=== PATIENT | female | born 1965 | race African-American/Black ===

== ENCOUNTER → 2019-07-30 | Outpatient (CLI) | payer OTHER ==
[~2019-07-30] VITALS: Ht 170.2 cm; Wt 95.3 kg
[~2019-07-30] MED LIST: ALBUTEROL SULF8.5 GM IH; AZITHROMYCIN 2250 MG PO; FLEXERIL PO; MULTI VITAMIN1 EACH PO; NOHOMEMEDICATIONS; OMEPRAZOLE 20 M20 M1 PO; PERCOCET 5-3251 EACH PO; PREDNISONE50 MG PO; PROMETHAZINE-C120 ML PO
--- NOTE | 2019-08-02 13:07 | PATH ---
[facility] [place] [address] PATHOLOGY RPT PROCEDURE Name: JUAN CRAIN Room #: REG [facility].#: [id number] Admission: 07/30/19 Date of : 69 Discharge: Report #: [id number] Path Case #: [id number] [facility] Accession Number: [id number] . 01 Material submitted: . PART A: cecum - POLYP AT CECUM X4 PART B: hepatic flexure - POLYP AT HEPATIC FLEXURE PART C: colon - POLYP AT MID-TRANSVERSE. Modifiers: mid, transverse . 01 Clinical history: . Preop DX: Screening Postop DX: Colon polyps, melanosis, diverticuli . 02 Diagnosis: A. Colonic mucosa, "polyp at cecum x4": - Multiple fragments revealing tubular adenomas and hyperplastic polyp. - There is no evidence of high grade dysplasia or malignancy. . B. Colonic mucosa, "polyp at hepatic flexure": - Tubular adenoma. - There is no evidence of high grade dysplasia or malignancy. . C. Colonic mucosa, "polyp at mid transverse": - Hyperplastic polyp. - There is no evidence of adenomatous change, high grade dysplasia or malignancy. . (SHA:mmoctavio; 08/02/2019) QLM 08/02/2019 [facility]9 Local . 02 Electronically signed: . Curly Patterson MD, Pathologist NPI- [id number] . 01 Gross description: . A. Received in formalin labeled "Juan Crain, polyp at cecum x4," are multiple (greater than four) fragments of emerson-brown soft tissue measuring 0.8 x 0.7 x 0.2 cm in aggregate dimensions and ranging from 0.1 to 0.5 cm in maximum dimension. The specimen is submitted entirely in cassette A1. . B. Received in formalin labeled "Juan Crain, polyp at hepatic flexure," are two segments of emerson-brown soft tissue measuring 0.3 x 0.2 x 0.1 cm and 0.4 x 0.3 x 0.2 cm in greatest dimensions. The specimen is submitted entirely in cassette B1. . C. Received in formalin labeled "Juan Crain, polyp at [address] [address] PATHOLOGY RPT PROCEDURE Name: JUAN CRAIN L [id number] Admission: 07/30/19 Date of : 69 Discharge: Report #: [id number] Path Case #: [id number] mid-transverse," is a segment of emerson-brown soft tissue measuring 0.8 x 0.4 x 0.3 cm in greatest dimensions. The specimen is submitted entirely in cassette C1. (DAC; 07/30/2019) XDC/XDC 07/30/2019 1842 Local . 02 Pathologist provided ICD-10: D12.0, D12.3, K63.5 . 02 CPT . 650275, 421273, 050167 Specimen Comment: A courtesy copy of this report has been sent to [phone], [phone] Specimen Comment: [id number] Specimen Comment: Report sent to / DR BAUTISTA Specimen Comment: A duplicate report has been generated due to demographic updates. Performed at: [address] [id number] MD Kal Mckeon MD Phone: [phone] Performed at: [address] [id number] MD Meche Cordero MD Phone: [phone]
--- NOTE | 2019-08-02 17:09 | P ---
[facility] [place] [address] PROCEDURE REPORT Name: JUAN CRAIN Room #: REG [facility]#: [id number] Admission: 07/30/19 Attend Phys: Hao Vega MD Discharge: Date of : 69 Report #: [id number] THIS REPORT FOR: //name// CC: Hao Long MD OUTPATIENT COLONOSCOPY BRIEF HISTORY: The patient is a 53-year-old woman for her initial average risk screening colonoscopy. PREOPERATIVE DIAGNOSIS: Average risk screening colonoscopy. POSTOPERATIVE DIAGNOSES: 1. Multiple colon polyps. 2. Melanosis coli. 3. Few scattered colonic diverticula. MEDICATIONS: Deep sedation with propofol per anesthesia. SPECIMENS: 1. Polyps x 4 cecum. 2. Polyp, hepatic flexure. 3. Polyp, mid transverse colon. ESTIMATED BLOOD LOSS: 3 mL. PROCEDURE: Colonoscopy to cecum and terminal ileum with snare polypectomy and biopsy. FINDINGS: Prior to propofol sedation, procedure of colonoscopy discussed with the patient as well as potential risks and its complications. She indicates she understands and desires to proceed. DESCRIPTION OF PROCEDURE: With the patient in left lateral decubitus position, digital examination was completed, which revealed no abnormalities. Subsequently, the Olympus video colonoscope was introduced in the rectum, advanced under direct vision to the cecum. Done with minimal difficulty. The cecum was identified by the ileocecal valve and the appendiceal orifice. I was able to visualize the distal segment of the terminal ileum, which was inspected and noted to be unremarkable. At that point, the scope was slowly withdrawn and careful circumferential views obtained including retroflexing the scope in the ascending colon. Upon slow withdrawal of the scope, the prep was good. The mucosa was within normal limits, normal vascular pattern, and normal light reflex. As we withdrew the scope, 4 diminutive polyps were found and removed with biopsy forceps from the cecum. Also, we withdrew the scope, there was [facility] [address] [place] [address] PROCEDURE REPORT Name: ANGELITA CRAINAngelique Beckford Room #: REG [facility].#: [id number] Admission: 07/30/19 Attend Phys: Hao Vega MD Discharge: Date of : 69 Report #: [id number] noted to be a pattern of melanosis coli. It was moderate in severity. The mucosa otherwise was unremarkable throughout the entire colon. At the hepatic flexure, another diminutive polyp was seen and removed with biopsy forceps. An occasional diverticulum was also seen scattered about the colon. A significant diverticular disease was not seen. In the mid transverse colon, there was a 4 x 8 mm sessile polyp removed by cold snare polypectomy and recovered. The scope was further withdrawn and no additional abnormalities were seen. There was noted to be a moderate amount of spasm throughout the colon, which made the exam more tedious. The scope was withdrawn in the rectum, no abnormalities were seen. Upon retroflexion, no abnormalities were seen. Scope was withdrawn. The patient tolerated the procedure well. CONDITION OF THE PATIENT UPON DISCHARGE: Following procedure, the patient drowsy, aroused, conversant, and will be discharged to home when fully ambulatory. INSTRUCTIONS TO THE PATIENT AND FAMILY AT THE TIME OF DISCHARGE: Six polyps removed today. We will follow up on the pathology. However, due to the number of polyps, suggest return for next surveillance colonoscopy in about 3 years. Withdrawal time from the cecum was 17 minutes and 32 seconds. <ELECTRONICALLY SIGNED> By: Hao Vega MD 08/02/19 1709 0901 0920 Hao Vega MD /nt
== END | disposition home or self-care (01) ==
LOC: GI 07:02
DX: Z12.11 Encounter for screening for malignant neoplasm of colon (principal); D12.0 Benign neoplasm of cecum; D12.3 Benign neoplasm of transverse colon; K63.89 Other specified diseases of intestine; K57.30 Diverticulosis of large intestine without perforation or abscess without bleeding; K21.9 Gastro-esophageal reflux disease without esophagitis; Z87.891 Personal history of nicotine dependence; Z90.710 Acquired absence of both cervix and uterus; Z98.890 Other specified postprocedural states; Z79.899 Other long term (current) drug therapy; Z87.01 Personal history of pneumonia (recurrent)
CPT/HCPCS: 62110; 62900